=== PATIENT | male | born 1960 | race Caucasian/White ===

== ENCOUNTER 2022-10-29 11:21 | Outpatient (NON) | payer OTHER, SELFPAY | END 2022-10-29 11:22 | disposition home or self-care (01) | LOC: ANHLAB 10-30 11:23 | PROVIDERS: PCP Student in an Organized Health Care Education/Training Program; Visit Provider Nurse Practitioner | DX: D22.5 Melanocytic nevi of trunk (principal) | CPT/HCPCS: 88305 ==

== ENCOUNTER 2022-12-02 08:00 | Outpatient (NON) | payer OTHER, SELFPAY | END 2022-12-02 08:01 | disposition home or self-care (01) | LOC: ANHLAB 12-04 13:28 | PROVIDERS: PCP Student in an Organized Health Care Education/Training Program; Visit Provider Nurse Practitioner | DX: D22.5 Melanocytic nevi of trunk (principal) | CPT/HCPCS: 88305 ==

== ENCOUNTER 2023-05-07 17:59 | Emergency (ER) | payer OTHER, SELFPAY ==
--- NOTE | ~2023-05-07 | XR_ITS ---
EXAMINATION: XR chest 2V Exam Date/Time: 05/07/2023 18:30 [employer] HISTORY: LEFT SIDE CHEST PAIN Comparison: 09/04/2017. RESULT: Lines, tubes, and devices: Partially visualized cervical hardware. Lungs and pleura: Clear. Cardiomediastinal silhouette: Stable. Other: No acute osseous or upper abdominal finding. IMPRESSION: No acute cardiopulmonary process. Reviewed, dictated and finalized at location [facility]
[2023-05-07 18:14] VITALS: BP 146/89; PULSE 71; RESP 16; TEMP 37; O2SAT 100
--- NOTE | 2023-05-07 18:14 | ED.CHESTPAIN ---
HPI - Chest Pain General Chief Complaint: Chest Pain Stated Complaint: Sinus Time Seen by Provider: 05/07/23 18:50 Mode of arrival: ambulatory Limitations: no limitations History of Present Illness HPI narrative: 62-year-old male presents with concern for left-sided chest pain that started yesterday. He reports history of smoking. He reports cough, reports shortness of breath. He reports some rhinorrhea. Denies sore throat, fever, body aches, chills, sweats. Reports fatigue. MD complaint: chest pain Related Data Home Medications Medication Instructions Recorded Confirmed atorvastatin 20 mg tablet 20 mg PO DAILY 02/13/21 05/07/23 meloxicam 15 mg tablet 15 mg PO DAILY 02/13/21 05/07/23 omeprazole 40 mg capsule,delayed 40 mg PO DAILY 02/13/21 05/07/23 release tamsulosin 0.4 mg capsule 0.8 mg PO DAILY 02/13/21 05/07/23 bupropion HCl 300 mg 24 hr tablet, mg PO 05/07/23 05/07/23 extended release ranolazine 500 mg tablet,extended mg PO 05/07/23 release,12 hr Allergies Allergy/AdvReac Type Severity Reaction Status Date / Time alatrofloxacin Allergy Severe Other Verified 05/07/23 18:19 trovafloxacin Allergy Severe Other Verified 05/07/23 18:19 Sulfa (Sulfonamide Allergy Unknown Unknown Verified 05/07/23 18:19 Antibiotics) Review of Systems Review of Systems: CONSTITUTIONAL: Denies malaise, chills, sweats, or fever. Reports fatigue EYES: Denies visual changes, redness, or discharge. ENT: Denies rhinorrhea, congestion. Denies sinus pain, otalgia or sore throat. CARDIOVASCULAR: Reports chest pain. Denies palpitations or edema. RESPIRATORY: Reports mild cough, dyspnea. GASTROINTESTINAL: Denies abdominal pain, nausea, vomiting SKIN: Denies rash or itching. MUSCULOSKELETAL: Denies myalgia. NEUROLOGIC: Denies numbness, weakness, or headache. PSYCHIATRIC: Denies anxiety or depression. All systems reviewed & are unremarkable except as noted in HPI and below PMFSH Past Medical History Medical History (Updated 05/07/23 @ 19:23 by Shea Quiroga NP) Abdominal pain Family History Family History Sibling Family history of diabetes mellitus in first degree relative Family history of type 1 diabetes mellitus Diabetes mellitus Other Family history of malignant neoplasm Social History Social History Smoking status: Current every day smoker Second hand tobacco smoke exposure: Yes Smoking end date: 05/12/09 Alcohol intake: current Comments At time of signature, agree with nursing past medical, surgical, social and family history. There is no relevant family history pertinent to the presenting complaint Exam Narrative: GENERAL: Well-appearing, well-nourished, and in no acute distress. HEAD: Normocephalic, atraumatic. EYES: PERRLA, sclera clear, and EOMI. No nystagmus. ENT: Nares clear, turbinates pink, no rhinorrhea or epistaxis. Mucous membranes moist. TM pearly santos with sharp light reflex bilaterally; no tragal tenderness. Oropharynx without erythema or lesions. Tonsils not enlarged and without exudate. NECK: Supple. No lymphadenopathy. No jugular venous distension, thyromegaly, or carotid bruits. Carotids were easily palpable bilaterally. CHEST: No respiratory distress. Clear to auscultation. No bony deformities, no asymmetry. Speaks in full sentences. HEART: Regular rate and rhythm. No murmur heard. Normal peripheral pulses. ABDOMEN: Soft, nontender, nondistended, normal active bowel sounds, no palpable masses. EXTREMITIES: Normal range of motion. No edema. Normal strength and sensation. SKIN: Warm, dry, no visible rash. NEURO: Alert and oriented x3. No focal deficits. Cranial nerves II through XII grossly intact PSYCH: Normal mood and affect Course Course Emergency Course: Discussed limited diagnostic capability [facility] for chest pain, discussed transfer to [facility]
--- NOTE | 2023-05-07 18:15 | ECG_ITS ---
Measurements Intervals [place] Rate: 63 P: 30 PA: 167 QRS: 73 QRSD: 109 T: 55 QT: 374 QTc: 385 Interpretive Statements SINUS RHYTHM NO PREVIOUS ECG AVAILABLE FOR COMPARISON Electronically Signed On 05-08-2023 9:12:56 [employer] by Dilcia Canchola M.D.
[2023-05-07 18:22] VITALS: BP 146/89; PULSE 71; RESP 16; TEMP 37; O2SAT 100
== END 2023-05-07 19:25 | disposition home or self-care (01) ==
PROVIDERS: Emergency Provider Nurse Practitioner; PCP Student in an Organized Health Care Education/Training Program
DX: R06.02 Shortness of breath (principal); Z87.891 Personal history of nicotine dependence
CPT/HCPCS: 71046; 87804; 93005; 99213; G0463